=== PATIENT | female | born 1955 | race Caucasian/White ===

== ENCOUNTER → 2017-02-03 | Outpatient (CLI) | payer OTHER ==
--- NOTE | 2017-02-03 13:44 | REPMRS ---
Patient History The patient states she had a clinical breast exam in 01/2017. Patient is postmenopausal. Took estrogen for 5 years. Digital Woman Screen Mammo: February 03, 2017 - Exam #: [id number] Bilateral CC and MLO view(s) were taken. Technologist: Shavonne Prabhakar, Technologist Prior study comparison: December 19, 2014, digital woman screen mammo performed at [facility] to [facility]. November 12, 2012, digital woman screen mammo performed at [facility]. October 10, 2011, bilateral bilat screen digital mammo performed at [facility] to [facility]. FINDINGS: There are scattered fibroglandular densities. There has been no change in the appearance of the mammogram from the prior studies. There is a mild amount of scattered fibroglandular density which is fairly symmetric. There is no interval development of dominant mass, architectural distortion, or clustered microcalcification suggestive of malignancy. ASSESSMENT: BI-RADS/ACR category 1 mammogram. Negative. Recommendation Routine screening mammogram in 1 year (for women over age 40). This mammogram was interpreted with the aid of an FDA-approved computer-aided dectection system. Electronically Signed By: Jose Carlos Carlisle MD 02/03/17 [id number]
--- NOTE | 2017-02-04 13:40 | DEXA ---
AP SPINE L1 - L4 0.962 -1.9 -1.4 LT FEMUR TOTAL 0.727 -2.2 -1.9 RT FEMUR TOTAL 0.747 -2.1 -1.7 TOTAL BODY TOTAL OTHER DUAL FEMUR FRAX* ASSESSMENT Risk factors: History of adult fracture. 10 year probability of fracture Major osteoporotic fracture 17.9 % Hip fracture 3.3 % COMMENTS: There is low bone density of the spine. There is osteoporosis of the hips. The density of the spine has increased 9.1% since the initial exam on 2003. The spine density has decreased 1.7% since the most recent exam on 12/19/2014. The density of the left hip has decreased 12.5% since the initial exam on 2003. The density of the left hip has decreased 1.5% since the most recent exam on . Density of the right hip has decreased 12.6% since the initial exam on 2003. The density of the right hip has decreased 3.1% since the most recent exam on . FOLLOW-UP: Recommendation for the next bone density exam: 2 years. ANTONIA
== END ==
LOC: M WHC 09:42
PROVIDERS: ATTEND Nurse Practitioner Family
DX: Z12.31 Encounter for screening mammogram for malignant neoplasm of breast (principal); M81.0 Age-related osteoporosis without current pathological fracture; Z78.0 Asymptomatic menopausal state
CPT/HCPCS: 77080; G0202

== ENCOUNTER → 2017-02-03 | Outpatient (REF) | payer OTHER | LOC: M SFHCWAGY 10:16 | PROVIDERS: ATTEND Nurse Practitioner Family | DX: Z12.4 Encounter for screening for malignant neoplasm of cervix (principal) ==

== ENCOUNTER → 2020-07-02 | Outpatient (CLI) | payer MEDICARE ==
[~2020-07-02] MED LIST: BUSP5TA PO; CALC500C16 PO; D3 22000 PO; DULO1CAP5 PO; DULO1CAP6 PO; METO1TAB7 PO; MULTCAP PO; OXYC1TAB23 PO; ROSU5TAB5 PO
--- NOTE | 2020-07-27 15:22 | REP ---
PELVIC ULTRASOUND CLINICAL: Postmenopausal bleeding. TECHNIQUE: Transabdominal pelvic ultrasound followed by transvaginal examination for better evaluation of the endometrium and adnexa. FINDINGS: Heterogeneous mildly enlarged anteverted uterus measured 7.5 x 3.5 x 4.1 cm. The endometrial complex is thickened to 9 mm. No discreet endometrial abnormalities identified. Multiple subcentimeter nabothian cysts noted in the lower uterine segment and cervix. The bilateral ovaries are normal in appearance. Right ovary measures 1.4 x 1.7 x 1.1 cm. Left ovary measures 1.4 x 1.3 x 0.8 cm. No pelvic fluid or adnexal mass lesion. IMPRESSION: * Heterogeneous uterus with mildly thickened endometrium. No discreet uterine or endometrial abnormality otherwise noted. * Incidental subcentimeter nabothian cysts. * Normal bilateral ovaries. MTDD
== END ==
LOC: M WHC 11:01
PROVIDERS: ATTEND Nurse Practitioner Women's Health
DX: N95.0 Postmenopausal bleeding (principal); N88.8 Other specified noninflammatory disorders of cervix uteri

== ENCOUNTER → 2020-09-05 | Outpatient (CLI) | payer MEDICARE, OTHER | LOC: M LABSMTC 10:33 | PROVIDERS: ATTEND Anesthesiology | DX: Z01.818 Encounter for other preprocedural examination (principal) | CPT/HCPCS: C9803; U0003 ==

== ENCOUNTER 2020-09-10 07:05 | Day surgery (SDC) | payer MEDICARE ==
[~2020-09-10] VITALS: Ht 152.4 cm; Wt 112.5 kg
[~2020-09-10 07:05] MED LIST changes: +LIDOCAINE 1% MDV 20ML VIAL SQ PRN; +LR 1,000 ML IV ONE; -OXYC1TAB23 PO
[2020-09-10] MEDS ORDERED: LIDOCAINE 2% 100MG/5ML SDV (FOR ANES.) As Ordered ONE (07:20)
[2020-09-10] MEDS ORDERED: MIDAZOLAM INJ 2MG/2ML VIAL (J2250 PER 1MG) As Ordered ONE (07:20)
[2020-09-10] MEDS ORDERED: ONDANSETRON 4MG/2ML VIAL As Ordered ONE (07:20)
[2020-09-10] MEDS ORDERED: propofoL 200 MG/20 ML VIAL As Ordered ONE (07:20)
[2020-09-10] MEDS ORDERED: fentaNYL 100 MCG/2 ML INJECTION (J3010) As Ordered ONE ×2 (07:20→10:04)
[2020-09-10] MEDS ORDERED: dexameTHASONE 4 MG/ML 1ML VIAL (J1100 PER 1MG) As Ordered ONE (07:20)
[2020-09-10] MEDS ORDERED: KETOROLAC 60MG 2ML VIAL As Ordered ONE (07:20)
[2020-09-10 07:42] LABS: HEMOGLOBIN 11.8 g/dl (12.0-15.5); MEAN CORPUSCULAR HEMOGLOBIN 27.9 pg (27.0-33.0); MEAN CORPUSCULAR HGB CONC 30.3 g/dl (32.0-36.5); MEAN CORPUSCULAR VOLUME 92.2 fl (80.0-96.0); PLATELET COUNT, AUTOMATED 253 10^3/uL (150-450); RED BLOOD COUNT 4.23 10^6/uL (4.00-5.40); WHITE BLOOD COUNT 7.1 10^3/uL (4.0-10.0)
[2020-09-10] MEDS ORDERED: ACETAMINOPHEN 1000MG 100ML IV BTL (OFIRMEV) (J0131 PER 10MG) As Ordered ONE (09:21)
--- NOTE | 2020-09-10 09:43 | ROOPDOC ---
[facility] Report Of Operation Report of Operation DATE OF PROCEDURE: 09/10/20 DATE OF PROCEDURE: September 10, 2020 PREPROCEDURE DIAGNOSES:Postmenopausal bleeding. POSTPROCEDURE DIAGNOSES: Same. PROCEDURE: Hysteroscopy, D&C. SURGEON: Peter Dao MD ANESTHESIA: Gen. via LMA. ESTIMATED BLOOD LOSS: Approximately 50 mL. COMPLICATIONS: None. FINDINGS: Sessile endometrial polyp. Otherwise, normal-appearing endometrial cavity. PROCEDURE NOTE: Patient taken to the operative room where LMA anesthesia was induced. She was prepped draped sterile fashion in dorsal lithotomy position. The bladder was emptied with a catheter. Speculum was placed in the vagina. The anterior lip of the cervix was grasped with tenaculum. Cervix dilated with tapered dilators. Dilation was initiated with lacrimal probe dilators due to cervical stenosis. A diagnostic hysteroscope using normal saline as the distention media was inserted through the internal os. Visualization the endometrial cavity revealed findings noted above. Sharp curettage was performed. Good hemostasis was noted. All insurance removed. Sponges recounts are correct. PETER DAO MD Sep 10, 2020 09:43
[2020-09-10] MEDS: fentaNYL 100 MCG/2 ML INJECTION (J3010) IV PRN ×2 (10:06→10:11)
[2020-09-10] MEDS ORDERED: LR 1,000 ML IV SCH ×2 (10:15)
[2020-09-10] MEDS ORDERED: oxyCODONE 5MG TAB PO PRN (10:15)
[2020-09-10] MEDS ORDERED: ONDANSETRON 4MG/2ML VIAL IV PRN (10:15)
[2020-09-10] MEDS ORDERED: ACETAMINOPHEN 500 MG TAB PO ONE (10:15)
[2020-09-10 11:50] VITALS: BP 143/65
[2020-09-10] MEDS ORDERED: OXYC1TAB23 PO (11:55)
--- NOTE | 2020-09-11 05:39 | ECGEPIP ---
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
== END 2020-09-10 12:00 | disposition home or self-care (01) ==
LOC: M SDC 07:05
PROVIDERS: ATTEND Specialist
DX: N95.0 Postmenopausal bleeding (principal); E78.5 Hyperlipidemia, unspecified; G47.33 Obstructive sleep apnea (adult) (pediatric); Z79.899 Other long term (current) drug therapy; F41.9 Anxiety disorder, unspecified; F32.9 Major depressive disorder, single episode, unspecified; Z88.8 Allergy status to other drugs, medicaments and biological substances
CPT/HCPCS: 36415; 58558; 85027; 88305; 93005; J0131; J1100; J1885; J2250; J2405; J3010

== ENCOUNTER → 2023-08-21 | Outpatient (CLI) | payer MEDICARE ==
[~2023-08-21] MED LIST changes: -D3 22000 PO; -LIDOCAINE 1% MDV 20ML VIAL SQ PRN; -LR 1,000 ML IV ONE; +OXYC1TAB23 PO; +VITA200030 PO
[2023-08-21 13:39] LABS: BASO % 0.7 % (0.0-1.0); EOS # 0.1 10^3/uL (0.0-0.5); EOS % 1.8 % (0.0-3.0); HEMATOCRIT 37.8 % (36.0-47.0); HEMOGLOBIN 11.7 g/dl (12.0-15.5); LYMPH # 1.2 10^3/uL (1.5-5.0); LYMPH % 21.6 % (24.0-44.0); MEAN CORPUSCULAR VOLUME 93.8 fl (80.0-96.0); MONO # 0.3 10^3/uL (0.0-0.8); MONO % 5.3 % (2.0-8.0); NEUTROPHILS % 70.2 % (36.0-66.0); PLATELET COUNT, AUTOMATED 220 10^3/uL (150-450); RED BLOOD COUNT 4.03 10^6/uL (4.00-5.40); WHITE BLOOD COUNT 5.6 10^3/uL (4.0-10.0)
[2023-08-21 14:06] LABS: ERYTHROCYTE SEDIMENTATION RATE 38 mm/hr (0-30)
== END ==
LOC: M LABDRWAD 08:14
DX: K86.2 Cyst of pancreas (principal); I10 Essential (primary) hypertension; E80.4 Gilbert syndrome

== ENCOUNTER → 2024-03-03 | Outpatient (REF) | payer MEDICARE ==
[~2024-03-03] MED LIST changes: +ROSU5TAB40 PO; -ROSU5TAB5 PO
[2024-03-03 13:47] LABS: BASO # 0.1 10^3/uL (0.0-0.2); EOS # 0.1 10^3/uL (0.0-0.5); EOS % 1.6 % (0.0-3.0); HEMOGLOBIN 12.1 g/dl (12.0-15.5); LYMPH # 1.2 10^3/uL (1.5-5.0); LYMPH % 20.1 % (24.0-44.0); MEAN CORPUSCULAR HEMOGLOBIN 29.8 pg (27.0-33.0); MEAN CORPUSCULAR VOLUME 96.1 fl (80.0-96.0); MONO # 0.4 10^3/uL (0.0-0.8); MONO % 6.2 % (2.0-8.0); NEUTROPHILS # 4.3 10^3/uL (1.5-8.5); NEUTROPHILS % 70.6 % (36.0-66.0); PLATELET COUNT, AUTOMATED 213 10^3/uL (150-450); RED BLOOD COUNT 4.06 10^6/uL (4.00-5.40); WHITE BLOOD COUNT 6.1 10^3/uL (4.0-10.0)
[2024-03-03 13:53] LABS: ALBUMIN 3.5 G/DL (3.2-5.2); ALKALINE PHOSPHATASE 95 U/L (46-116); ALT/SGPT 38 U/L (7.0-40); AST/SGOT 30 U/L (<34); BILIRUBIN,TOTAL 1.4 MG/DL (0.3-1.2); BLOOD UREA NITROGEN 16 MG/DL (9-23); CALCIUM LEVEL 10.4 MG/DL (8.3-10.6); CARBON DIOXIDE LEVEL 28 MMOL/L (20-31); CHLORIDE LEVEL 106 MMOL/L (98-107); CHOLESTEROL LEVEL 181 MG/DL (<200); CHOLESTEROL RISK RATIO 3.52 (<5); CREATININE FOR GFR 0.59 MG/DL (0.55-1.30); GLOMERULAR FILTRATION RATE > 60.0 (>45); GLUCOSE, FASTING 172 MG/DL (74-106); HDL CHOLESTEROL 51.3 MG/DL (>40); LDL CHOLESTEROL 80.5 MG/DL (<100); NON-HDL-C 129.7 MG/DL; POTASSIUM SERUM 4.6 MMOL/L (3.5-5.1); SODIUM LEVEL 142 MMOL/L (136-145); TOTAL PROTEIN 6.4 G/DL (5.7-8.2); TRIGLYCERIDES LEVEL 246 MG/DL (<150)
[2024-03-03 14:16] LABS: HEMOGLOBIN A1c 5.9 % (4.0-6.0)
== END ==
LOC: M LABDRWAD 12:59 → M LAB REF 12:59
PROVIDERS: ATTEND Specialist
DX: K86.2 Cyst of pancreas (principal)

== ENCOUNTER → 2024-03-03 | Outpatient (REF) | payer MEDICARE | LOC: M LABDRWAD 13:01 | PROVIDERS: ATTEND Nurse Practitioner Family | DX: E78.2 Mixed hyperlipidemia (principal); E11.9 Type 2 diabetes mellitus without complications; I10 Essential (primary) hypertension ==

== ENCOUNTER → 2024-12-21 | Outpatient (REF) | payer MEDICARE ==
[~2024-12-21] MED LIST changes: -ROSU5TAB40 PO; +ROSU5TAB49 PO
[2024-12-21 15:26] LABS: ALBUMIN 3.3 G/DL (3.2-5.2); ALKALINE PHOSPHATASE 98 U/L (35-104); ALT/SGPT 42 U/L (7.0-40); AST/SGOT 18 U/L (<34); BILIRUBIN,TOTAL 1.4 MG/DL (0.3-1.2); BLOOD UREA NITROGEN 11 MG/DL (9-23); CALCIUM LEVEL 10.7 MG/DL (8.3-10.6); CARBON DIOXIDE LEVEL 29 MMOL/L (20-31); CHLORIDE LEVEL 108 MMOL/L (98-107); CHOLESTEROL LEVEL 209 MG/DL (<200); CHOLESTEROL RISK RATIO 4.02 (<5); CREATININE FOR GFR 0.69 MG/DL (0.55-1.30); GLOMERULAR FILTRATION RATE > 60.0 (>39); GLUCOSE, FASTING 137 MG/DL (74-106); HDL CHOLESTEROL 51.9 MG/DL (>40); LDL CHOLESTEROL 103.9 MG/DL (<100); NON-HDL-C 157.1 MG/DL; POTASSIUM SERUM 4.6 MMOL/L (3.5-5.1); SODIUM LEVEL 144 MMOL/L (136-145); TOTAL PROTEIN 6.2 G/DL (5.7-8.2); TRIGLYCERIDES LEVEL 266 MG/DL (<150)
[2024-12-21 16:14] LABS: HEMOGLOBIN A1c 5.9 % (4.0-6.0)
== END ==
LOC: M LABDRWAD 12:29
PROVIDERS: ATTEND Family Medicine
DX: E78.2 Mixed hyperlipidemia (principal); E11.9 Type 2 diabetes mellitus without complications